=== PATIENT | male | born 1935 | race Caucasian/White ===

== ENCOUNTER 2017-07-19 04:50 | Inpatient (IN) | payer OTHER, MEDICARE, BC ==
[~2017-07-19] VITALS: Ht 188 cm; Wt 65.9 kg
[~2017-07-19 04:50] MED LIST: ACET-1015 PO; ALBU8.5H8 IH; ASPI-1265 PO; ATOR20TA PO; BUDE10.23 IH; CALC-216 PO; CARV3.12 PO; CHOL200035 PO; CLOP75TA15 PO; CYAN100087 PO; DONE5TAB3 PO; FINA5TAB11 PO; FLUO30CR2 TP; FLUO40CR3 TD; FOLI-43 PO; GABA-338 PO; LEVO50TA67 PO; METH2.5T PO; MIRA50TA PO; PRED5TAB PO; TEST1.25 TD; TRAM50TA2 PO; [UNRECOGNIZED DRUG - CODE] TP; [UNRECOGNIZED DRUG - CODE] TP
[2017-07-19] MEDS ORDERED: levoFLOXACIN-Levaquin 750MG/D5 150 ML IV ONE (05:00)
[2017-07-19] MEDS ORDERED: normal saline 1000ML IV soln IV ONE (05:00)
[2017-07-19] MEDS ORDERED: vancomycin/NS 1 GM ADD-VANTAGE 250 ML IV ONE (05:35)
[2017-07-19 05:40] LABS: BASOPHILS % (AUTO) 0.5 % (0-1); EOSINOPHILS # (AUTO) 0.6 X10'3 (0-0.9); EOSINOPHILS % (AUTO) 7.3 % (0-6); HEMOGLOBIN 12.4 g/dl (14.0-17.9); LYMPHOCYTES % (AUTO) 12.4 % (21-51); MEAN CORPUSCULAR HGB CONC 33.4 % (33.0-36.5); MEAN CORPUSCULAR VOLUME 95.8 FL (78-98); MEAN PLATELET VOLUME 7.9 FL (7.4-10.4); MONOCYTES # (AUTO) 0.8 X10'3 (0-0.9); MONOCYTES % (AUTO) 9.7 % (2-12); NEUTROPHILS # (AUTO) 5.8 X10'3 (1.8-7.7); NEUTROPHILS % (AUTO) 70.1 % (42-75); PLATELET COUNT 211 X10'3 (140-440); RED BLOOD COUNT 3.87 X10'6 (4.70-6.10); RED CELL DISTRIBUTION WIDTH 16.1 % (11.5-14.5); WHITE BLOOD COUNT 8.3 X10'3 (4.5-11.0)
[2017-07-19 05:51] LABS: PARTIAL THROMBOPLASTIN TIME 27 SECONDS (22-32); PROTHROMBIN TIME 10.2 SECONDS (9.0-12.0)
[2017-07-19 05:55] LABS: ALANINE AMINOTRANSFERASE 22 U/L (12-78); ALBUMIN 3.3 G/DL (3.4-5.0); ALBUMIN/GLOBULIN RATIO 0.9 (1.1-1.5); ALKALINE PHOSPHATASE 67 IU/L (46-116); ANION GAP 9 (8-16); ASPARTATE AMINO TRANSFERASE 22 U/L (10-37); BILIRUBIN,TOTAL 0.4 MG/DL (0.1-1.0); BLOOD UREA NITROGEN 29 MG/DL (7-18); BUN/CREATININE RATIO 17.9 (5.4-32.0); CALCIUM 8.6 MG/DL (8.5-10.1); CHLORIDE 102 MMOL/L (99-107); CREATININE 1.62 MG/DL (0.60-1.10); GLUCOSE 96 MG/DL (70-104); POTASSIUM 4.3 MMOL/L (3.5-5.1); SODIUM 141 MMOL/L (135-145); TOTAL CARBON DIOXIDE 30.4 MMOL/L (24-32); eGFR 41 ML/MIN
[2017-07-19] MEDS ORDERED: acetaminophen 325mg tablet PO ONE (05:55)
[2017-07-19 06:30] LABS: CLARITY,URINE Clear (Clear); COLOR,URINE Yellow (Yellow); GLUCOSE, URINE Negative (Neg); KETONES,URINE Negative (Neg); LEUKOCYTE ESTERASE ,URINE Negative (Neg); NITRITES, URINE Negative (Neg); OCCULT BLOOD,URINE Negative (Neg); PH,URINE 6.5 (4.8-8.0); PROTEIN,URINE Negative (Neg)
[2017-07-19 06:32] LABS: UA COLLECTION TYPE VOIDED
[2017-07-19] MEDS ORDERED: oseltamivir phos 75mg capsule PO ONE (06:50)
[2017-07-19] MEDS ORDERED: morphine 4 MG/ML inj SYRINge IV PRN (07:20)
[2017-07-19] MEDS ORDERED: mag hydrox/Alum hydrox/simeth 30ml oral suspension PO PRN (07:20)
[2017-07-19] MEDS ORDERED: acetaminophen 325mg tablet PO PRN (07:20)
[2017-07-19] MEDS ORDERED: ondansetron/PF 4mg/2ml inj IV PRN (07:20)
[2017-07-19] MEDS ORDERED: magnesium hydroxide 30ml (MOM) UD suspension PO PRN (07:20)
[2017-07-19] MEDS ORDERED: levoFLOXACIN-Levaquin 500mg/D5 100 ML IV SCH (08:00)
[2017-07-19] MEDS ORDERED: GLY TP SCH (08:00)
[2017-07-19] MEDS ORDERED: DIMETH TP SCH (08:00)
[2017-07-19] MEDS ORDERED: oseltamivir 30mg capsule PO SCH (08:00)
[2017-07-19] MEDS ORDERED: oseltamivir phos 75mg capsule PO SCH (08:00)
[2017-07-19] MEDS ORDERED: MIRABEGRON 25 MG PO SCH (08:00)
[2017-07-19] MEDS ORDERED: WATER TP SCH (08:00)
[2017-07-19] MEDS ORDERED: PETROLAT WHT TP SCH (08:00)
[2017-07-19] MEDS: levoTHYROXINE 25mcg tablet PO SCH (08:55)
[2017-07-19] MEDS: calcium carbonate 500mg tablet PO SCH (08:55)
[2017-07-19] MEDS: aspirin 81mg tab.chew PO SCH (08:56)
[2017-07-19] MEDS: clopidogrel 75mg tablet PO SCH (08:56)
[2017-07-19] MEDS: vitamin D (cholecalciferol) 1,000 unit tablet PO SCH (08:56)
[2017-07-19] MEDS: carVEDilol 3.125mg tablet PO SCH ×2 (08:56→20:15)
[2017-07-19] MEDS: atorvastatin 20mg tablet PO SCH (08:56)
[2017-07-19] MEDS: folic acid 1mg tablet PO SCH (08:57)
[2017-07-19] MEDS: methylPREDNISolone sod succ 125mg/2ml vial IV SCH ×3 (08:58→20:15)
[2017-07-19] MEDS: cyanocobalamin 500mcg tablet PO SCH (09:19)
[2017-07-19] MEDS: normal saline 1000ml 1,000 ML IV SCH ×2 (09:19→17:27)
[2017-07-19] MEDS: donepezil 5mg tablet PO SCH (09:20)
[2017-07-19] MEDS ORDERED: ATRNS (11:24)
[2017-07-19] MEDS ORDERED: NITR0.4T51 SL (11:24)
[2017-07-19] MEDS ORDERED: GENT30OI2 TOP (11:24)
[2017-07-19 12:30] VITALS: BP 157/72
[2017-07-19] MEDS: fluticasone/vilanterol 200mcg/25mcg inhaler IH SCH ×2 (12:45→14:02)
[2017-07-19] MEDS: ipratropium 0.5 MG/2.5ML nebule IH SCH ×3 (12:45→20:04)
[2017-07-19] MEDS: testosterone 5gm gel packet TD SCH (12:45)
[2017-07-19] MEDS: morphine 4 MG/ML inj SYRINge IV PRN (14:28)
[2017-07-19 18:44] VITALS: BP 127/64
[2017-07-19] MEDS: oseltamivir 30mg capsule PO SCH (20:14)
[2017-07-19] MEDS: traMADol 50MG tablet PO SCH (20:14)
[2017-07-19 20:15] VITALS: BP 137/64
[2017-07-19] MEDS: finasteride 5mg tablet PO SCH (20:15)
[2017-07-19] MEDS: gabapentin 100mg capsule PO SCH (20:15)
[2017-07-19] MEDS ORDERED: FLUOROURACIL 5% TP SCH (21:00)
[2017-07-19 22:00] VITALS: BP 134/63
[2017-07-20] MEDS: ipratropium 0.5 MG/2.5ML nebule IH SCH ×4 (01:56→20:25)
[2017-07-20] MEDS: morphine 4 MG/ML inj SYRINge IV PRN (02:01)
[2017-07-20] MEDS: methylPREDNISolone sod succ 125mg/2ml vial IV SCH ×4 (02:01→20:44)
[2017-07-20] MEDS: normal saline 1000ml 1,000 ML IV SCH (02:09)
[2017-07-20 05:00] VITALS: BP 160/70
[2017-07-20 05:33] LABS: BASOPHILS % (AUTO) 0 % (0-1); EOSINOPHILS % (AUTO) 0.5 % (0-6); HEMATOCRIT 30.6 % (42.0-52.0); HEMOGLOBIN 10.2 g/dl (14.0-17.9); LYMPHOCYTES # (AUTO) 0.5 X10'3 (1.1-4.8); LYMPHOCYTES % (AUTO) 7.7 % (21-51); MEAN CORPUSCULAR HEMOGLOBIN 31.7 PG (27.0-31.0); MEAN CORPUSCULAR HGB CONC 33.4 % (33.0-36.5); MEAN CORPUSCULAR VOLUME 94.8 FL (78-98); MEAN PLATELET VOLUME 8.1 FL (7.4-10.4); MONOCYTES # (AUTO) 0.1 X10'3 (0-0.9); MONOCYTES % (AUTO) 1.2 % (2-12); NEUTROPHILS # (AUTO) 6.4 X10'3 (1.8-7.7); NEUTROPHILS % (AUTO) 90.6 % (42-75); PLATELET COUNT 180 X10'3 (140-440); RED BLOOD COUNT 3.23 X10'6 (4.70-6.10); WHITE BLOOD COUNT 7.1 X10'3 (4.5-11.0)
[2017-07-20 05:55] LABS: ALBUMIN 2.5 G/DL (3.4-5.0); ANION GAP 11 (8-16); BLOOD UREA NITROGEN 29 MG/DL (7-18); BUN/CREATININE RATIO 22.8 (5.4-32.0); CALCIUM 7.9 MG/DL (8.5-10.1); CHLORIDE 108 MMOL/L (99-107); CREATININE 1.27 MG/DL (0.60-1.10); GLUCOSE 145 MG/DL (70-104); POTASSIUM 3.9 MMOL/L (3.5-5.1); SODIUM 142 MMOL/L (135-145); TOTAL CARBON DIOXIDE 23.4 MMOL/L (24-32); eGFR 54 ML/MIN
[2017-07-20] MEDS ORDERED: levoFLOXACIN-Levaquin 500mg/D5 100 ML IV SCH (08:00)
[2017-07-20] MEDS: donepezil 5mg tablet PO SCH (08:18)
[2017-07-20] MEDS: traMADol 50MG tablet PO SCH ×3 (08:18→20:45)
[2017-07-20] MEDS: folic acid 1mg tablet PO SCH (08:23)
[2017-07-20] MEDS: oseltamivir 30mg capsule PO SCH ×2 (08:23→20:44)
[2017-07-20] MEDS: clopidogrel 75mg tablet PO SCH (08:23)
[2017-07-20] MEDS: calcium carbonate 500mg tablet PO SCH (08:23)
[2017-07-20] MEDS: atorvastatin 20mg tablet PO SCH (08:23)
[2017-07-20] MEDS: aspirin 81mg tab.chew PO SCH (08:23)
[2017-07-20] MEDS: vitamin D (cholecalciferol) 1,000 unit tablet PO SCH (08:23)
[2017-07-20] MEDS: carVEDilol 3.125mg tablet PO SCH ×2 (08:23→20:45)
[2017-07-20] MEDS: levoTHYROXINE 25mcg tablet PO SCH (08:23)
[2017-07-20] MEDS: gabapentin 100mg capsule PO SCH ×3 (08:23→20:44)
[2017-07-20] MEDS: cyanocobalamin 500mcg tablet PO SCH (08:24)
[2017-07-20] MEDS: fluticasone/vilanterol 200mcg/25mcg inhaler IH SCH (09:21)
[2017-07-20 10:00] VITALS: BP 149/59
[2017-07-20] MEDS: levoFLOXACIN 250mg tablet PO SCH (11:36)
[2017-07-20] MEDS: testosterone 5gm gel packet TD SCH (11:37)
[2017-07-20] MEDS: lactobacillus rhamnosus 10,000 MMU CELLS/CAPSULE PO SCH (17:30)
[2017-07-20 18:43] VITALS: BP 151/67
[2017-07-20 20:30] VITALS: BP 160/65
[2017-07-20] MEDS: finasteride 5mg tablet PO SCH (20:44)
[2017-07-20] MEDS: neomy sulf/bacitrac zn/polymixin b oint 14.2 gm tube TP SCH (20:44)
[2017-07-20 22:00] VITALS: BP 166/77
[2017-07-21] MEDS: methylPREDNISolone sod succ 125mg/2ml vial IV SCH ×2 (02:01→09:50)
[2017-07-21 02:54] LABS: BASOPHILS % (AUTO) 0 % (0-1); EOSINOPHILS % (AUTO) 0 % (0-6); HEMATOCRIT 31.5 % (42.0-52.0); HEMOGLOBIN 10.7 g/dl (14.0-17.9); LYMPHOCYTES # (AUTO) 0.6 X10'3 (1.1-4.8); LYMPHOCYTES % (AUTO) 4.4 % (21-51); MEAN CORPUSCULAR HEMOGLOBIN 31.9 PG (27.0-31.0); MONOCYTES # (AUTO) 0.2 X10'3 (0-0.9); MONOCYTES % (AUTO) 1.7 % (2-12); NEUTROPHILS # (AUTO) 12.1 X10'3 (1.8-7.7); NEUTROPHILS % (AUTO) 93.9 % (42-75); PLATELET COUNT 190 X10'3 (140-440); RED BLOOD COUNT 3.35 X10'6 (4.70-6.10); RED CELL DISTRIBUTION WIDTH 15.9 % (11.5-14.5); WHITE BLOOD COUNT 12.9 X10'3 (4.5-11.0)
[2017-07-21 03:08] LABS: ALBUMIN 2.7 G/DL (3.4-5.0); ANION GAP 11 (8-16); BLOOD UREA NITROGEN 31 MG/DL (7-18); BUN/CREATININE RATIO 27.7 (5.4-32.0); CALCIUM 8.2 MG/DL (8.5-10.1); CHLORIDE 106 MMOL/L (99-107); CREATININE 1.12 MG/DL (0.60-1.10); GLUCOSE 139 MG/DL (70-104); POTASSIUM 3.6 MMOL/L (3.5-5.1); SODIUM 141 MMOL/L (135-145); TOTAL CARBON DIOXIDE 23.8 MMOL/L (24-32); eGFR 63 ML/MIN
[2017-07-21] MEDS: ipratropium 0.5 MG/2.5ML nebule IH SCH ×2 (03:13→07:57)
[2017-07-21 05:00] VITALS: BP 167/69
[2017-07-21] MEDS: fluticasone/vilanterol 200mcg/25mcg inhaler IH SCH (07:58)
[2017-07-21] MEDS: neomy sulf/bacitrac zn/polymixin b oint 14.2 gm tube TP SCH (08:00)
[2017-07-21] MEDS: testosterone 5gm gel packet TD SCH (09:28)
[2017-07-21] MEDS: donepezil 5mg tablet PO SCH (09:49)
[2017-07-21] MEDS: lactobacillus rhamnosus 10,000 MMU CELLS/CAPSULE PO SCH (09:49)
[2017-07-21] MEDS: calcium carbonate 500mg tablet PO SCH (09:50)
[2017-07-21] MEDS: aspirin 81mg tab.chew PO SCH (09:50)
[2017-07-21] MEDS: gabapentin 100mg capsule PO SCH (09:50)
[2017-07-21] MEDS: carVEDilol 3.125mg tablet PO SCH (09:50)
[2017-07-21] MEDS: clopidogrel 75mg tablet PO SCH (09:50)
[2017-07-21] MEDS: atorvastatin 20mg tablet PO SCH (09:50)
[2017-07-21] MEDS: folic acid 1mg tablet PO SCH (09:50)
[2017-07-21] MEDS: traMADol 50MG tablet PO SCH (09:51)
[2017-07-21] MEDS: vitamin D (cholecalciferol) 1,000 unit tablet PO SCH (09:51)
[2017-07-21] MEDS: levoTHYROXINE 25mcg tablet PO SCH (09:51)
[2017-07-21] MEDS: oseltamivir 30mg capsule PO SCH (09:51)
[2017-07-21] MEDS: cyanocobalamin 500mcg tablet PO SCH (09:51)
[2017-07-21 10:00] VITALS: BP 143/65
[2017-07-21] MEDS ORDERED: OSEL30CA PO (10:07)
[2017-07-21] MEDS ORDERED: LEVO250T58 PO (10:07)
[2017-07-21] MEDS: levoFLOXACIN 250mg tablet PO SCH (11:31)
[2017-07-21] MEDS ORDERED: gabapentin 300mg capsule PO SCH (14:00)
[2017-07-22] MEDS ORDERED: predniSONE 20 mg tablet PO SCH (08:00)
== END 2017-07-21 13:47 | disposition home health service (06) | DRG 871 ==
LOC: ER 04:50 → ED HOLD 07:19 → ORTHO 4S 12:37
PROVIDERS: ADMIT Family Medicine; ATTEND Family Medicine
DX: A41.9 Sepsis, unspecified organism (principal); J18.9 Pneumonia, unspecified organism; G93.41 Metabolic encephalopathy; M30.1 Polyarteritis with lung involvement [Churg-Strauss]; N17.9 Acute kidney failure, unspecified; L03.115 Cellulitis of right lower limb; J44.0 Chronic obstructive pulmonary disease with (acute) lower respiratory infection; F03.90 Unspecified dementia, unspecified severity, without behavioral disturbance, psychotic disturbance, mood disturbance, and anxiety; I77.6 Arteritis, unspecified; G25.81 Restless legs syndrome; H91.93 Unspecified hearing loss, bilateral; E03.9 Hypothyroidism, unspecified; J10.1 Influenza due to other identified influenza virus with other respiratory manifestations; K21.9 Gastro-esophageal reflux disease without esophagitis; M06.9 Rheumatoid arthritis, unspecified; N18.9 Chronic kidney disease, unspecified; R09.02 Hypoxemia; Z79.899 Other long term (current) drug therapy; Z79.01 Long term (current) use of anticoagulants; Z79.82 Long term (current) use of aspirin; Z86.73 Personal history of transient ischemic attack (TIA), and cerebral infarction without residual deficits
CPT/HCPCS: 36415; 71045; 74176; 80048; 80053; 81003; 83605; 83735; 84145; 85025; 85610; 85730; 87040; 87070; 87502; 87503; 93005; 93306; 94640; 94760; 96365; 96366; 96368; 97116; 97162; 99285; A6449; J1956; J2270; J2930; J3370; J7030

== ENCOUNTER 2017-07-27 10:26 | Emergency (ER) | payer OTHER, MEDICARE, BC ==
[~2017-07-27] VITALS: Ht 188 cm; Wt 61.4 kg
[~2017-07-27 10:26] MED LIST changes: +ATRNS; -FLUO30CR2 TP; +GENT30OI2 TOP; +LEVO250T58 PO; +NITR0.4T51 SL; +OSEL30CA PO
[2017-07-27 12:21] LABS: BASOPHILS % (AUTO) 0 % (0-1); EOSINOPHILS # (AUTO) 0.3 X10'3 (0-0.9); EOSINOPHILS % (AUTO) 2.7 % (0-6); HEMATOCRIT 34.8 % (42.0-52.0); HEMOGLOBIN 11.4 g/dl (14.0-17.9); LYMPHOCYTES # (AUTO) 0.5 X10'3 (1.1-4.8); LYMPHOCYTES % (AUTO) 4.7 % (21-51); MEAN CORPUSCULAR HEMOGLOBIN 31.1 PG (27.0-31.0); MEAN CORPUSCULAR HGB CONC 32.7 % (33.0-36.5); MEAN CORPUSCULAR VOLUME 95.1 FL (78-98); MEAN PLATELET VOLUME 8.3 FL (7.4-10.4); MONOCYTES % (AUTO) 8.6 % (2-12); NEUTROPHILS # (AUTO) 9.3 X10'3 (1.8-7.7); PLATELET COUNT 188 X10'3 (140-440); RED BLOOD COUNT 3.66 X10'6 (4.70-6.10); RED CELL DISTRIBUTION WIDTH 16.5 % (11.5-14.5); WHITE BLOOD COUNT 11.1 X10'3 (4.5-11.0)
[2017-07-27 12:32] LABS: PARTIAL THROMBOPLASTIN TIME 26 SECONDS (22-32); PROTHROMBIN TIME 10.6 SECONDS (9.0-12.0)
[2017-07-27 12:39] LABS: ALANINE AMINOTRANSFERASE 21 U/L (12-78); ALBUMIN 3.1 G/DL (3.4-5.0); ALKALINE PHOSPHATASE 59 IU/L (46-116); ANION GAP 5 (8-16); ASPARTATE AMINO TRANSFERASE 21 U/L (10-37); BLOOD UREA NITROGEN 33 MG/DL (7-18); BUN/CREATININE RATIO 20.8 (5.4-32.0); CALCIUM 8.3 MG/DL (8.5-10.1); CHLORIDE 105 MMOL/L (99-107); CREATININE 1.59 MG/DL (0.60-1.10); GLUCOSE 108 MG/DL (70-104); POTASSIUM 4.5 MMOL/L (3.5-5.1); SODIUM 142 MMOL/L (135-145); TOTAL CARBON DIOXIDE 32.3 MMOL/L (24-32); TOTAL PROTEIN 6.2 G/DL (6.4-8.2); TROPONIN I < 0.04 NG/ML (0.0-0.05); eGFR 42 ML/MIN
[2017-07-27] MEDS ORDERED: LIDOcaine 1% 30ml preserv. free vial IJ ONE (13:55)
[2017-07-27 14:26] LABS: ABG BASE EXCESS 1.4 mmol/L (-2.0-3.0); ABG HCO3 25.3 mmol/L (22.0-26.0); ABG OXYGEN SATURATION 93.2 % (95-98); ABG PCO2 (T) 37.1 mmHg (35.0-48.0); ABG PH (T) 7.451 (7.350-7.450); ABG PO2 (T) 64.6 mmHg (83-108); ALLEN'S TEST Positive; FCOHb 0.9 % (0.5-1.5); FMetHb 0.3 % (0.3-1.12); FO2Hb 92.1 % (94-100); TOTAL HEMOGLOBIN 11.7 G/dl (14.0-18.0)
[2017-07-27 17:05] VITALS: BP 122/68
== END 2017-07-27 17:22 | disposition home or self-care (01) ==
LOC: ER 10:26
DX: S51.011A Laceration without foreign body of right elbow, initial encounter (principal); S61.511A Laceration without foreign body of right wrist, initial encounter; S61.411A Laceration without foreign body of right hand, initial encounter; S81.011A Laceration without foreign body, right knee, initial encounter; I25.10 Atherosclerotic heart disease of native coronary artery without angina pectoris; I25.2 Old myocardial infarction; J44.9 Chronic obstructive pulmonary disease, unspecified; K21.9 Gastro-esophageal reflux disease without esophagitis; Z79.82 Long term (current) use of aspirin; W01.0XXA Fall on same level from slipping, tripping and stumbling without subsequent striking against object, initial encounter; Y93.E1 Activity, personal bathing and showering; Y92.89 Other specified places as the place of occurrence of the external cause; Y99.8 Other external cause status
CPT/HCPCS: 12006; 36415; 36600; 70450; 71046; 72125; 80053; 82803; 84484; 85018; 85025; 85610; 85730; 93005; 99285; A6222; A6255; A6446; A6449; J3490

== ENCOUNTER 2017-07-29 12:23 | Inpatient (IN) | payer OTHER, MEDICARE, BC ==
[~2017-07-29] VITALS: Ht 170.2 cm; Wt 63.6 kg
[2017-07-29 13:03] LABS: BASOPHILS # (AUTO) 0.1 X10'3 (0-0.2); BASOPHILS % (AUTO) 0.5 % (0-1); EOSINOPHILS # (AUTO) 0.1 X10'3 (0-0.9); EOSINOPHILS % (AUTO) 0.9 % (0-6); HEMATOCRIT 33.1 % (42.0-52.0); HEMOGLOBIN 11.2 g/dl (14.0-17.9); LYMPHOCYTES # (AUTO) 0.6 X10'3 (1.1-4.8); LYMPHOCYTES % (AUTO) 3.8 % (21-51); MEAN CORPUSCULAR HEMOGLOBIN 31.7 PG (27.0-31.0); MEAN CORPUSCULAR VOLUME 93.3 FL (78-98); MEAN PLATELET VOLUME 8.2 FL (7.4-10.4); MONOCYTES # (AUTO) 1.1 X10'3 (0-0.9); MONOCYTES % (AUTO) 6.5 % (2-12); NEUTROPHILS # (AUTO) 14.6 X10'3 (1.8-7.7); NEUTROPHILS % (AUTO) 88.3 % (42-75); PLATELET COUNT 233 X10'3 (140-440); RED BLOOD COUNT 3.55 X10'6 (4.70-6.10); RED CELL DISTRIBUTION WIDTH 16.2 % (11.5-14.5); WHITE BLOOD COUNT 16.5 X10'3 (4.5-11.0)
[2017-07-29 13:13] LABS: PARTIAL THROMBOPLASTIN TIME 30 SECONDS (22-32); PROTHROMBIN TIME 10.3 SECONDS (9.0-12.0)
[2017-07-29 13:19] LABS: ALANINE AMINOTRANSFERASE 16 U/L (12-78); ALBUMIN 2.9 G/DL (3.4-5.0); ALBUMIN/GLOBULIN RATIO 0.8 (1.1-1.5); ALKALINE PHOSPHATASE 62 IU/L (46-116); ANION GAP 7 (8-16); ASPARTATE AMINO TRANSFERASE 18 U/L (10-37); BILIRUBIN,TOTAL 0.7 MG/DL (0.1-1.0); BLOOD UREA NITROGEN 30 MG/DL (7-18); CALCIUM 8.4 MG/DL (8.5-10.1); CHLORIDE 105 MMOL/L (99-107); CREATININE 1.43 MG/DL (0.60-1.10); GLUCOSE 119 MG/DL (70-104); POTASSIUM 4.9 MMOL/L (3.5-5.1); SODIUM 140 MMOL/L (135-145); TOTAL CARBON DIOXIDE 27.7 MMOL/L (24-32); TOTAL PROTEIN 6.5 G/DL (6.4-8.2); eGFR 47 ML/MIN
[2017-07-29] MEDS ORDERED: levoFLOXACIN-Levaquin 750MG/D5 150 ML IV ONE (13:20)
[2017-07-29 19:00] VITALS: BP 130/65
[2017-07-29] MEDS ORDERED: albuterol 2.5 MG/3 ML nebule NEB PRN (19:15)
[2017-07-29] MEDS: traMADol 50MG tablet PO PRN (20:18)
[2017-07-29] MEDS: ipratropium 0.06% nasal spray 15ml NS SCH (20:18)
[2017-07-29] MEDS: finasteride 5mg tablet PO SCH (20:18)
[2017-07-29] MEDS: gentamicin 0.1% topical ointment 15gm TP SCH (20:18)
[2017-07-29] MEDS: gabapentin 300mg capsule PO SCH (20:18)
[2017-07-29] MEDS: donepezil 5mg tablet PO SCH (20:36)
[2017-07-29 22:23] VITALS: BP 112/54
[2017-07-30 06:00] VITALS: BP 133/65
[2017-07-30] MEDS: fluticasone/vilanterol 200mcg/25mcg inhaler IH SCH (07:17)
[2017-07-30] MEDS: atorvastatin 20mg tablet PO SCH (09:13)
[2017-07-30] MEDS: azithromycin 250mg tablet PO SCH (09:13)
[2017-07-30] MEDS: gabapentin 300mg capsule PO SCH ×3 (09:14→20:50)
[2017-07-30] MEDS: levoTHYROXINE 25mcg tablet PO SCH (09:14)
[2017-07-30] MEDS: donepezil 5mg tablet PO SCH (09:14)
[2017-07-30] MEDS: gentamicin 0.1% topical ointment 15gm TP SCH ×3 (09:14→20:50)
[2017-07-30] MEDS: folic acid 1mg tablet PO SCH (09:14)
[2017-07-30] MEDS: predniSONE 5mg tablet PO SCH (09:14)
[2017-07-30] MEDS: ipratropium 0.06% nasal spray 15ml NS SCH ×2 (09:15→20:50)
[2017-07-30] MEDS: cefTRIAXone 1g/NS 100ml IVPB 100 ML IV SCH (09:15)
[2017-07-30 10:00] VITALS: BP 142/58
[2017-07-30] MEDS: lactobacillus rhamnosus 10,000 MMU CELLS/CAPSULE PO SCH (17:26)
[2017-07-30 18:44] VITALS: BP 108/52
[2017-07-30] MEDS: finasteride 5mg tablet PO SCH (20:50)
[2017-07-30 22:00] VITALS: BP 140/60
[2017-07-31 06:00] VITALS: BP 137/60
[2017-07-31 06:20] LABS: BASOPHILS % (AUTO) 0.1 % (0-1); EOSINOPHILS # (AUTO) 0.2 X10'3 (0-0.9); EOSINOPHILS % (AUTO) 1.4 % (0-6); HEMOGLOBIN 11.2 g/dl (14.0-17.9); LYMPHOCYTES % (AUTO) 6.3 % (21-51); MEAN CORPUSCULAR VOLUME 94.1 FL (78-98); MONOCYTES # (AUTO) 0.6 X10'3 (0-0.9); MONOCYTES % (AUTO) 3.6 % (2-12); NEUTROPHILS # (AUTO) 13.8 X10'3 (1.8-7.7); NEUTROPHILS % (AUTO) 88.6 % (42-75); PLATELET COUNT 253 X10'3 (140-440); RED BLOOD COUNT 3.51 X10'6 (4.70-6.10); WHITE BLOOD COUNT 15.6 X10'3 (4.5-11.0)
[2017-07-31 06:36] LABS: ALBUMIN 2.4 G/DL (3.4-5.0); ANION GAP 10 (8-16); BLOOD UREA NITROGEN 22 MG/DL (7-18); BUN/CREATININE RATIO 16.7 (5.4-32.0); CALCIUM 8.3 MG/DL (8.5-10.1); CHLORIDE 105 MMOL/L (99-107); CREATININE 1.32 MG/DL (0.60-1.10); GLUCOSE 121 MG/DL (70-104); POTASSIUM 3.9 MMOL/L (3.5-5.1); SODIUM 141 MMOL/L (135-145); TOTAL CARBON DIOXIDE 26.1 MMOL/L (24-32); eGFR 52 ML/MIN
[2017-07-31] MEDS: fluticasone/vilanterol 200mcg/25mcg inhaler IH SCH (08:29)
[2017-07-31 10:00] VITALS: BP 124/56
[2017-07-31] MEDS: lactobacillus rhamnosus 10,000 MMU CELLS/CAPSULE PO SCH ×2 (10:00→17:30)
[2017-07-31] MEDS: levoTHYROXINE 25mcg tablet PO SCH (10:00)
[2017-07-31] MEDS: cefTRIAXone 1g/NS 100ml IVPB 100 ML IV SCH (10:00)
[2017-07-31] MEDS: folic acid 1mg tablet PO SCH (10:00)
[2017-07-31] MEDS: azithromycin 250mg tablet PO SCH (10:01)
[2017-07-31] MEDS: donepezil 5mg tablet PO SCH (10:01)
[2017-07-31] MEDS: predniSONE 5mg tablet PO SCH (10:01)
[2017-07-31] MEDS: gabapentin 300mg capsule PO SCH ×3 (10:01→20:56)
[2017-07-31] MEDS: atorvastatin 20mg tablet PO SCH (10:01)
[2017-07-31] MEDS: gentamicin 0.1% topical ointment 15gm TP SCH ×3 (10:01→20:57)
[2017-07-31] MEDS: ipratropium 0.06% nasal spray 15ml NS SCH ×2 (10:02→20:57)
[2017-07-31 18:40] VITALS: BP 107/55
[2017-07-31] MEDS: traMADol 50MG tablet PO PRN (20:56)
[2017-07-31] MEDS: finasteride 5mg tablet PO SCH (20:57)
[2017-07-31 22:00] VITALS: BP 100/54
[2017-08-01 07:07] VITALS: BP 125/69
[2017-08-01] MEDS: gentamicin 0.1% topical ointment 15gm TP SCH (08:00)
[2017-08-01] MEDS: fluticasone/vilanterol 200mcg/25mcg inhaler IH SCH (08:49)
[2017-08-01] MEDS: folic acid 1mg tablet PO SCH (09:23)
[2017-08-01] MEDS: atorvastatin 20mg tablet PO SCH (09:25)
[2017-08-01] MEDS: gabapentin 300mg capsule PO SCH ×2 (09:25→14:25)
[2017-08-01] MEDS: predniSONE 5mg tablet PO SCH (09:26)
[2017-08-01] MEDS: azithromycin 250mg tablet PO SCH (09:27)
[2017-08-01] MEDS: donepezil 5mg tablet PO SCH (09:28)
[2017-08-01] MEDS: cefTRIAXone 1g/NS 100ml IVPB 100 ML IV SCH (09:28)
[2017-08-01] MEDS: levoTHYROXINE 25mcg tablet PO SCH (10:51)
[2017-08-01] MEDS: lactobacillus rhamnosus 10,000 MMU CELLS/CAPSULE PO SCH (10:51)
[2017-08-01] MEDS: ipratropium 0.06% nasal spray 15ml NS SCH (10:51)
[2017-08-01 10:56] VITALS: BP 117/58
[2017-08-01 14:00] VITALS: BP 159/66
[2017-08-01 14:56] VITALS: BP 116/65
[2017-08-01] MEDS ORDERED: cefuroxime axetil 250mg tablet PO SCH (20:00)
[2017-08-02] MEDS ORDERED: azithromycin 250mg tablet PO SCH (08:00)
== END 2017-08-01 16:18 | DRG 193 ==
LOC: ER 12:24 → ED HOLD 14:17 → ORTHO 4S 17:25
PROVIDERS: ADMIT Internal Medicine; ATTEND Internal Medicine
DX: J18.1 Lobar pneumonia, unspecified organism (principal); J96.91 Respiratory failure, unspecified with hypoxia; M30.1 Polyarteritis with lung involvement [Churg-Strauss]; J44.0 Chronic obstructive pulmonary disease with (acute) lower respiratory infection; J44.1 Chronic obstructive pulmonary disease with (acute) exacerbation; F03.90 Unspecified dementia, unspecified severity, without behavioral disturbance, psychotic disturbance, mood disturbance, and anxiety; M06.9 Rheumatoid arthritis, unspecified; E03.9 Hypothyroidism, unspecified; E78.5 Hyperlipidemia, unspecified; H91.90 Unspecified hearing loss, unspecified ear; I25.10 Atherosclerotic heart disease of native coronary artery without angina pectoris; K21.9 Gastro-esophageal reflux disease without esophagitis; R62.7 Adult failure to thrive; I25.2 Old myocardial infarction; Z79.899 Other long term (current) drug therapy; Z79.82 Long term (current) use of aspirin; Z86.73 Personal history of transient ischemic attack (TIA), and cerebral infarction without residual deficits
CPT/HCPCS: 36415; 71045; 80048; 80053; 83605; 84484; 85025; 85610; 85730; 87040; 87070; 93005; 94640; 94760; 97110; 97116; 97162; 99285; A6209; A6212; A6223; A6257; A6446; A6449; J0696; J1956; J7030; J7512; J8610

== ENCOUNTER 2017-11-23 12:51 | Emergency (ER) | payer MEDICARE, BC, OTHER ==
[~2017-11-23] VITALS: Ht 188 cm; Wt 59.1 kg
[~2017-11-23 12:51] MED LIST changes: -LEVO250T58 PO
[2017-11-23] MEDS ORDERED: LIDOcaine 1% 30ml preserv. free vial IJ ONE (13:55)
[2017-11-23] MEDS ORDERED: LIDOcaine 1.5% w/epinephrine 1:200,000 5ml ampul IJ ONE (13:55)
[2017-11-23] MEDS ORDERED: bacitracin 15gm ointment TP ONE (13:55)
[2017-11-23] MEDS ORDERED: LIDOcaine 1%/PF 5ML 10 MG/ML VIAL IJ ONE (14:10)
[2017-11-23] MEDS ORDERED: cephalexin 500mg capsule PO ONE (16:10)
[2017-11-23] MEDS ORDERED: CEPH250T PO (16:11)
[2017-11-23] MEDS ORDERED: NEOM1OIN8 TOP (16:15)
[2017-11-23 16:58] VITALS: BP 170/82
== END 2017-11-23 17:39 | disposition home or self-care (01) ==
LOC: ER 12:52
DX: S42.202A Unspecified fracture of upper end of left humerus, initial encounter for closed fracture (principal); S51.012A Laceration without foreign body of left elbow, initial encounter; I25.10 Atherosclerotic heart disease of native coronary artery without angina pectoris; I25.2 Old myocardial infarction; J44.9 Chronic obstructive pulmonary disease, unspecified; K21.9 Gastro-esophageal reflux disease without esophagitis; Z86.73 Personal history of transient ischemic attack (TIA), and cerebral infarction without residual deficits; Z79.82 Long term (current) use of aspirin; Z79.899 Other long term (current) drug therapy; W18.39XA Other fall on same level, initial encounter; Y93.89 Activity, other specified; Y92.89 Other specified places as the place of occurrence of the external cause; Y99.8 Other external cause status
CPT/HCPCS: 12005; 73030; 73060; 73130; 99284; A4565; A6255; A6446; J2001; J3490; A6449

== ENCOUNTER 2018-01-15 00:04 | Emergency (ER) | payer MEDICARE, BC, OTHER ==
[~2018-01-15] VITALS: Ht 188 cm; Wt 62.3 kg
[~2018-01-15 00:04] MED LIST changes: +CEPH250T PO; +NEOM1OIN8 TOP
[2018-01-15] MEDS ORDERED: normal saline 1000ml 1,000 ML IV ONE (00:35)
[2018-01-15 01:24] LABS: BASOPHILS # (AUTO) 0.1 X10'3 (0-0.2); BASOPHILS % (AUTO) 0.6 % (0-1); EOSINOPHILS # (AUTO) 0.4 X10'3 (0-0.9); EOSINOPHILS % (AUTO) 3.8 % (0-6); HEMATOCRIT 31.2 % (42.0-52.0); HEMOGLOBIN 10.2 g/dl (14.0-17.9); LYMPHOCYTES # (AUTO) 0.8 X10'3 (1.1-4.8); LYMPHOCYTES % (AUTO) 8.2 % (21-51); MEAN CORPUSCULAR HEMOGLOBIN 28.6 PG (27.0-31.0); MEAN CORPUSCULAR HGB CONC 32.6 % (33.0-36.5); MEAN CORPUSCULAR VOLUME 87.9 FL (78-98); MEAN PLATELET VOLUME 8.5 FL (7.4-10.4); MONOCYTES # (AUTO) 1.1 X10'3 (0-0.9); MONOCYTES % (AUTO) 11.1 % (2-12); NEUTROPHILS # (AUTO) 7.8 X10'3 (1.8-7.7); NEUTROPHILS % (AUTO) 76.3 % (42-75); PLATELET COUNT 242 X10'3 (140-440); RED BLOOD COUNT 3.55 X10'6 (4.70-6.10); RED CELL DISTRIBUTION WIDTH 18.9 % (11.5-14.5); WHITE BLOOD COUNT 10.2 X10'3 (4.5-11.0)
[2018-01-15 01:28] LABS: PARTIAL THROMBOPLASTIN TIME 26 SECONDS (22-32); PROTHROMBIN TIME 10.5 SECONDS (9.0-12.0)
[2018-01-15 01:42] LABS: ALANINE AMINOTRANSFERASE 24 U/L (12-78); ALBUMIN 3.1 G/DL (3.4-5.0); ALBUMIN/GLOBULIN RATIO 0.8 (1.1-1.5); ALKALINE PHOSPHATASE 64 IU/L (46-116); ANION GAP 5 (8-16); ASPARTATE AMINO TRANSFERASE 25 U/L (10-37); BILIRUBIN,TOTAL 0.4 MG/DL (0.1-1.0); BLOOD UREA NITROGEN 33 MG/DL (7-18); BUN/CREATININE RATIO 20.1 (5.4-32.0); CALCIUM 8.8 MG/DL (8.5-10.1); CHLORIDE 102 MMOL/L (99-107); CREATININE 1.64 MG/DL (0.60-1.10); GLUCOSE 125 MG/DL (70-104); MAGNESIUM 2.1 MG/DL (1.5-2.4); POTASSIUM 4.6 MMOL/L (3.5-5.1); SODIUM 135 MMOL/L (135-145); TOTAL CARBON DIOXIDE 27.6 MMOL/L (24-32); TOTAL PROTEIN 6.8 G/DL (6.4-8.2); eGFR 40 ML/MIN
[2018-01-15] MEDS ORDERED: CLIN300C54 PO (02:49)
[2018-01-15 03:25] LABS: CLARITY,URINE CLEAR (Clear); COLOR,URINE YELLOW (Yellow); GLUCOSE, URINE NEGATIVE (Neg); KETONES,URINE NEGATIVE (Neg); LEUKOCYTE ESTERASE ,URINE NEGATIVE (Neg); NITRITES, URINE NEGATIVE (Neg); OCCULT BLOOD,URINE TRACE-INTACT (Neg); PROTEIN,URINE TRACE mg/dl (Neg); UROBILINOGEN,URINE 0.2 E.U/dL (0.2-1.0)
[2018-01-15 03:29] LABS: UA COLLECTION TYPE CLN CATCH MIDSTREAM
[2018-01-15 03:40] LABS: BACTERIA,URINE NONE SEEN /HPF (Neg); MUCUS STRANDS NONE SEEN /LPF (Neg); RBC,URINE 0-2 /HPF (0-2); SQUAMOUS EPITHELIAL CELL,UR NONE SEEN /LPF (FEW); WBC,URINE NONE SEEN /HPF (0-4)
[2018-01-15 04:53] VITALS: BP 118/49
[2018-01-18] MEDS ORDERED: GABA-532 PO (18:34)
[2018-01-18] MEDS ORDERED: LACT-47 (18:36)
[2018-01-18] MEDS ORDERED: CLOT15CR10 TP (18:36)
[2018-01-18] MEDS ORDERED: QUIN324C PO (18:36)
[2018-01-18] MEDS ORDERED: RANO500T3 PO (19:31)
== END 2018-01-15 04:00 | disposition home or self-care (01) ==
LOC: ER 00:05
DX: S00.83XA Contusion of other part of head, initial encounter (principal); R41.82 Altered mental status, unspecified; R50.9 Fever, unspecified; R53.1 Weakness; I25.10 Atherosclerotic heart disease of native coronary artery without angina pectoris; I25.2 Old myocardial infarction; J44.9 Chronic obstructive pulmonary disease, unspecified; K21.9 Gastro-esophageal reflux disease without esophagitis; G62.9 Polyneuropathy, unspecified; Z79.82 Long term (current) use of aspirin; Z79.2 Long term (current) use of antibiotics; Z79.899 Other long term (current) drug therapy; X58.XXXA Exposure to other specified factors, initial encounter; Y93.89 Activity, other specified; Y92.89 Other specified places as the place of occurrence of the external cause; Y99.8 Other external cause status
CPT/HCPCS: 36415; 70450; 71045; 80053; 81001; 83605; 83735; 84145; 85025; 85610; 85730; 87040; 93005; 96360; 99285; J7030

== ENCOUNTER 2018-06-01 07:54 | Inpatient (IN) | payer MEDICARE, BC, OTHER | END 2018-06-12 15:25 | LOC: ER 07:54 → SUR 3N 06-02 11:59 → ED HOLD 13:11 | DX: J69.0 Pneumonitis due to inhalation of food and vomit (principal); E43 Unspecified severe protein-calorie malnutrition; N39.0 Urinary tract infection, site not specified; Z68.1 Body mass index [BMI] 19.9 or less, adult; R31.9 Hematuria, unspecified; F03.90 Unspecified dementia, unspecified severity, without behavioral disturbance, psychotic disturbance, mood disturbance, and anxiety ==